=== PATIENT | female | born 1990 | race Caucasian/White ===

== ENCOUNTER 2016-05-25 05:27 | Inpatient (IN) | payer BC ==
[~2016-05-25] VITALS: Ht 162.6 cm; Wt 116.1 kg
[2016-05-25] VITALS (9 sets, daily range): BP systolic 101–119; BP diastolic 55–75
[~2016-05-25 05:27] MED LIST: COLACE100 MG PO; DILAUDID2 MG PO; MICROGESTIN FE1 EACH PO; Motrin PO; OMEPRAZOLE40 M1 PO; PREFERA-OB P1 TABLET PO; PRENATAL VITAM1 EA11 PO; Percocet 5/325,Endoc PO; REGLAN10 MG PO; ULTRAM50 MG PO; VITAMIN D5000 UNI1 PO; WELLBUTRIN75 MG PO
[2016-05-25] MEDS ORDERED: IBUPROFEN800 MG PO (08:31)
[2016-05-25] MEDS ORDERED: ENDOCET 5-3251 EACH PO (08:31)
[2016-05-25 09:13] LABS: POINT-OF-CARE METER ID UU13113675
[2016-05-26 03:00] VITALS: BP 97/57
[2016-05-26 07:13] VITALS: BP 106/71
[2016-05-26 09:18] LABS: EOSINOPHIL (%) 0.1 % (0-5); HEMATOCRIT 31.1 % (36.0-46.0); IMMATURE GRANULOCYTE (%) 0.5 % (0.0-0.7); IMMATURE GRANULOCYTE COUNT 0.1 K/uL; INSTRUMENT ABS NEUTROPHIL CT 9.8 K/uL; LYMPHOCYTE COUNT 3.4 K/uL (1.0-2.8); MCH 27.4 PG (29.0-34.0); MCHC 32.2 G/DL (30.0-36.0); MCV 85.2 FL (83-99); MEAN PLAT.VOLUME 12.7 uM^3 (9.5-12.4); MONOCYTE (%) 4.7 % (3-12); MONOCYTE COUNT 0.7 K/uL (0-0.8); NEUTROPHIL (%) 70.3 % (45-76); NEUTROPHIL COUNT 9.8 K/uL (1.8-6.4); PLATELET COUNT 174 K/uL (156-360); RBC DIS.WIDTH-CV 14.2 % (11.8-14.6); RBC DIS.WIDTH-SD 43.6 % (39-53); RED BLOOD COUNT 3.65 M/uL (3.80-5.20)
[2016-05-26 09:28] LABS: WHITE BLOOD COUNT 13.9 K/uL (4.1-10.2)
[2016-05-26 10:58] VITALS: BP 114/63
[2016-05-26 15:20] VITALS: BP 105/59
[2016-05-26 19:05] VITALS: BP 103/56
[2016-05-26 23:01] VITALS: BP 124/69
[2016-05-27 03:09] VITALS: BP 120/58
[2016-05-27 07:15] VITALS: BP 130/66
== END 2016-05-27 14:28 | disposition home or self-care (01) | DRG 765 ==
LOC: 2WEST 05:27 → 2SOUTH 08:09 → 2WEST 05-27 14:28
PROVIDERS: Obstetrics & Gynecology
DX: O34.211 Maternal care for low transverse scar from previous cesarean delivery (principal); Z68.41 Body mass index [BMI] 40.0-44.9, adult; Z3A.39 39 weeks gestation of pregnancy; O24.410 Gestational diabetes mellitus in pregnancy, diet controlled; Z37.0 Single live birth; Z30.2 Encounter for sterilization; O76 Abnormality in fetal heart rate and rhythm complicating labor and delivery; E66.9 Obesity, unspecified; O99.824 Streptococcus B carrier state complicating childbirth; O99.214 Obesity complicating childbirth; O69.81X0 Labor and delivery complicated by cord around neck, without compression, not applicable or unspecified
CPT/HCPCS: 36415; 82948; 85025; 85027; 86850; 86900; 86901; 88302; J0690; J1885; J2274; J7120

== ENCOUNTER 2016-10-31 17:35 | Emergency (ER) | payer BC ==
[~2016-10-31] VITALS: Ht 162.6 cm; Wt 112.4 kg
[~2016-10-31 17:35] MED LIST changes: +ENDOCET 5-3251 EACH PO; +IBUPROFEN800 MG PO
[2016-10-31 18:25] LABS: HEMATOCRIT 38.1 % (36.0-46.0); MCH 27.6 PG (29.0-34.0); MCHC 33.1 G/DL (30.0-36.0); MCV 83.6 FL (83-99); MEAN PLAT.VOLUME 10.3 uM^3 (9.5-12.4); PLATELET COUNT 301 K/uL (156-360); RBC DIS.WIDTH-CV 13.7 % (11.8-14.6); RBC DIS.WIDTH-SD 41.7 % (39-53); RED BLOOD COUNT 4.56 M/uL (3.80-5.20); WHITE BLOOD COUNT 8.5 K/uL (4.1-10.2)
[2016-10-31 18:36] LABS: CHLORIDE 105 mEq/L (99-109); POTASSIUM 4.2 mEq/L (3.7-5.4); SODIUM 140 mEq/L (136-147)
[2016-10-31 18:38] LABS: GLUCOSE 91 mg/dL (70-99)
[2016-10-31 18:39] LABS: ANION GAP 12 MEQ/L (2-14)
[2016-10-31 18:40] LABS: TOTAL BILIRUBIN 0.3 mg/dL (0.0-1.0)
[2016-10-31 18:42] LABS: ALKALINE PHOSPHATASE 57 IU/L (3-129); GFR ESTIMATE (CALCULATED) > 59 mL/min/
[2016-10-31 18:43] LABS: UREA NITROGEN (BUN) 13 mg/dL (9-23)
[2016-10-31 18:45] LABS: LIPASE 21 U/L (1.0-51.0)
[2016-10-31 18:52] LABS: QUANTITATIVE HCG < 4.0 MIU/ML
[2016-10-31 20:00] LABS: ADD MIUA? NO; BILIRUBIN NEGATIVE; BLOOD NEGATIVE; COLOR YELLOW ((YELLOW)); GLUCOSE (STRIP) NEGATIVE; KETONES NEGATIVE; LEUKOCYTES NEGATIVE; NITRITE NEGATIVE; PROTEIN (STRIP) NEGATIVE; UCUL ADDED? NO; UROBILINOGEN 0.2 MG/DL (0.2-1.0)
[2016-10-31] MEDS ORDERED: ZOFRAN4 MG PO (20:06)
[2016-10-31 20:29] VITALS: BP 109/76
== END 2016-10-31 20:31 | disposition home or self-care (01) ==
LOC: EME 17:35
DX: K80.20 Calculus of gallbladder without cholecystitis without obstruction (principal)
CPT/HCPCS: 71020; 76705; 80053; 81003; 83690; 84702; 85027; 93005; 99281; 99284

== ENCOUNTER 2016-11-22 10:09 | Day surgery (SDC) | payer BC ==
[~2016-11-22] VITALS: Ht 162.6 cm; Wt 111.1 kg
[~2016-11-22 10:09] MED LIST changes: +ZOFRAN4 MG PO
[2016-11-22 10:50] VITALS: BP 121/74
[2016-11-22] MEDS ORDERED: PERCOCET 5/31 TABLET PO (16:10)
[2016-11-22 17:25] VITALS: BP 128/71
== END 2016-11-22 18:40 | disposition home or self-care (01) ==
LOC: SDC 10:09
PROC: 0FT44ZZ Resection of Gallbladder, Percutaneous Endoscopic Approach (ICD-10-PCS; principal; 2016-11-22)
DX: K80.10 Calculus of gallbladder with chronic cholecystitis without obstruction (principal); Z87.891 Personal history of nicotine dependence; E66.01 Morbid (severe) obesity due to excess calories; Z68.41 Body mass index [BMI] 40.0-44.9, adult; K21.9 Gastro-esophageal reflux disease without esophagitis; F41.8 Other specified anxiety disorders; G43.109 Migraine with aura, not intractable, without status migrainosus; E53.8 Deficiency of other specified B group vitamins; E55.9 Vitamin D deficiency, unspecified; Z88.8 Allergy status to other drugs, medicaments and biological substances
CPT/HCPCS: 88304; J0690; J1100; J1170; J1885; J2250; J2405; J2710; J3010